=== PATIENT | female | born 1965 | race Caucasian/White ===

== ENCOUNTER 2019-12-20 23:43 | Emergency (ER) | payer MEDICAID, SELFPAY ==
[~2019-12-20] VITALS: Ht 152.4 cm; Wt 95.3 kg
[2019-12-21 03:04] VITALS: BP 117/83
== END 2019-12-21 03:05 | disposition home or self-care (01) ==
LOC: ED 23:43
DX: U07.1 COVID-19 (principal); J20.8 Acute bronchitis due to other specified organisms; I10 Essential (primary) hypertension
CPT/HCPCS: 87804; J1885; Q0092; U0003-CS

== ENCOUNTER 2019-12-21 21:10 | Emergency (ER) | payer MEDICAID, SELFPAY ==
[~2019-12-21] VITALS: Ht 167.6 cm; Wt 93.9 kg
[2019-12-21 22:06] VITALS: Ht 167.6 cm; Wt 93.9 kg
[2019-12-21 23:13] LABS: BASOPHIL % 0.5 % (0-2); PLATELET COUNT 237 x10^3mcL (130-400); RED CELL DISTRIBUTION WIDTH 14.1 % (11.5-14.5)
[2019-12-21 23:23] LABS: CALCIUM 8.5 mg/dL (8.5-10.1); CARBON DIOXIDE 21.3 mmol/L (21-32); CHLORIDE SERUM 104 mmol/L (98-107); CREATININE SERUM 0.8 mg/dL (0.6-1.0); GFR1 > 60 mL/min; GLUCOSE SERUM 96 mg/dL (74-106); POTASSIUM SERUM 3.5 mmol/L (3.5-5.1); SODIUM SERUM 139 mmol/L (136-145)
[2019-12-21 23:35] LABS: ALBUMIN 3.7 g/dL (3.4-5.0); ALKALINE PHOSPHATASE 87 U/L (46-116); ALT/SGPT 24 U/L (14-59); AST/SGOT 18 U/L (15-37); BILIRUBIN TOTAL 0.5 mg/dL (0.20-1.00); C REACTIVE PROTEIN 0.8 mg/dL (<=0.9); LACTIC DEHYDROGENASE (LDH) 184 U/L (100-190); TOTAL PROTEIN, SERUM 6.9 g/dL (6.4-8.2)
[2019-12-21 23:45] LABS: microscopic required? YES; urine erythrocyte TRACE (NEGATIVE)
[2019-12-22 01:10] VITALS: BP 117/67
== END 2019-12-22 01:10 | disposition home or self-care (01) ==
LOC: ED 21:10
PROVIDERS: Emergency Medicine
DX: J10.1 Influenza due to other identified influenza virus with other respiratory manifestations (principal)
CPT/HCPCS: 36600; 83880; 85378; J1885; J7030; Q0092